=== PATIENT | male | born 1975 | race Caucasian/White ===

== ENCOUNTER 2023-02-12 15:59 | Emergency (ER) | payer BC ==
[2023-02-12] MEDS ORDERED: LORazepam 1 MG Tab PO ONE (16:17)
== END 2023-02-12 18:15 | disposition home or self-care (01) ==
LOC: JD.ED 15:59
DX: F41.9 Anxiety disorder, unspecified (principal)
CPT/HCPCS: 36415; 80053; 84484; 85025; 93005; 99284; A9270; 93010